=== PATIENT | male | born 1975 | race Caucasian/White ===

== ENCOUNTER 2024-09-03 18:37 | Outpatient (CLI) | payer OTHER, SELFPAY | END 2024-09-03 18:38 | disposition home or self-care (01) | LOC: AMB 09-05 15:02 | PROVIDERS: Visit Provider Family Medicine | DX: F10.129 Alcohol abuse with intoxication, unspecified (principal) | CPT/HCPCS: A0425; A0427 ==

== ENCOUNTER 2024-09-03 19:15 | Inpatient (IN) | payer OTHER, SELFPAY ==
[2024-09-03] VITALS (13 sets, daily range): BP systolic 98–118; BP diastolic 57–80; PULSE 92–98; RESP 14–22; TEMP 36.3; O2SAT 89–93; BMI 26.5
--- NOTE | 2024-09-03 19:38 | CRLHL7_ITS ---
For Patients: As a result of the Century Cures Act, medical imaging exams and procedure reports are released immediately into your electronic medical record. You may view this report before your referring provider. If you have questions, please contact your health care provider. TECHNIQUE: Multiplanar CT examination of the head was performed without the use of intravenous contrast. INDICATION: Trauma. COMPARISON: None. FINDINGS: No loss of bangura-white differentiation to suggest recent territorial infarct. No intracranial hemorrhage, abnormal extra-axial fluid collection, hydrocephalus or midline shift. The ventricles and cerebral sulci are prominent caliber common compatible with mild generalized parenchymal volume loss. There is ill-defined hypoattenuation of the supratentorial white matter diffusely, nonspecific but consistent with chronic microvascular ischemic changes. The basal cisterns are patent. The paranasal sinuses and mastoid air cells remain clear. The orbits and calvarium are unremarkable. The cerebellar tonsils are normal position. IMPRESSION: No acute intracranial findings. Please note that all CT scans at this facility use dose modulation, iterative reconstruction, and/or weight-based dosing when appropriate to reduce radiation dose to as low as reasonably achievable. Dictated by Rodrigo Shannon MD @ 09/03/2024 8:23:41 PM (Electronically Signed)
--- NOTE | 2024-09-03 19:38 | CRLHL7_ITS ---
For Patients: As a result of the Century Cures Act, medical imaging exams and procedure reports are released immediately into your electronic medical record. You may view this report before your referring provider. If you have questions, please contact your health care provider. INDICATION: Alcohol abuse, jaundice, new abdominal distension. TECHNIQUE: CT abdomen and pelvis acquired with 100 cc Omnipaque 350 IV contrast. COMPARISON: None. FINDINGS: Lower chest: Bibasilar atelectasis. Liver: Hepatomegaly with underlying steatosis.. No suspicious masses. Gallbladder and bile ducts: Unremarkable. No stones or inflammation. No biliary dilatation. Pancreas: Unremarkable. No mass or inflammation. Spleen: Unremarkable. Normal in size. No masses. Adrenal glands: Unremarkable. No nodules. Kidneys: Unremarkable. No suspicious masses, stones, or hydronephrosis. GI tract: Tiny hiatal hernia. Mild gastric/duodenal and proximal colonic wall thickening, likely portal gastropathy/colopathy.. Normal in caliber. No sign of mass or inflammation. Normal appendix. Vasculature: Abdominal aorta is normal in caliber. Mesenteric arteries are patent. Lymph nodes: No lymphadenopathy. Peritoneum/Abdominal Wall: Moderate volume ascites. No free air. Pelvis: Unremarkable. Bones: Unremarkable for age. IMPRESSION: Hepatomegaly with underlying steatosis. Sequela of portal venous hypertension, including moderate volume ascites. Mild gastric/duodenal and proximal colonic wall thickening, likely portal gastropathy/colopathy. Otherwise, no acute intra-abdominal/pelvic abnormality. Please note that all CT scans at this facility use dose modulation, iterative reconstruction, and/or weight-based dosing when appropriate to reduce radiation dose to as low as reasonably achievable. Dictated by Km David MD @ 09/03/2024 8:25:38 PM (Electronically Signed)
[2024-09-03] MEDS: 0.9 % SODIUM CHLORIDE 1000 ml 1,000 ML IV (19:50)
[2024-09-03 19:53] LABS: PCO2 VBG 29 mmHG (40-50); pH VBG 7.438 (7.32-7.43)
[2024-09-03 19:54] LABS: Basophils Percent Auto 0.1 % (0.0-3.0); Eosinophils Percent Auto 0.2 % (0.0-7.0); HCO3 VBG 19 mmol/L (21-28); Hematocrit 36.8 % (37.0-53.0); Hemoglobin* 13.5 gm/dL (13.5-17.5); Lymphocytes Percent Auto 7.2 % (20-44); Mean Corpuscular HGB Conc 37 gm/dL (32-36); Mean Corpuscular Hemoglobin 37 pg (26-34); Mean Corpuscular Volume 102 fL (80-100); Monocytes Percent Auto 11.1 % (0.0-11.0); Neutrophils Percent Auto 80.4 % (42.0-72.0); PO2 VBG 56.4 mmHG (25-47); Platelet Count* 249 K/uL (140-440); RDW Coefficient of Variation % 15.8 % (11.5-15.5); Red Blood Count 3.62 m/uL (4.30-5.90); White Blood Count* 15.19 K/uL (4.50-11.00)
[2024-09-03 19:55] LABS: Lactate* 8.4 mmol/L (0.5-1.9); Slide Review Reflex No
[2024-09-03 20:12] LABS: Albumin* 3.5 g/dL (3.3-5.0); Chloride* 82 mmol/L (96-114)
[2024-09-03 20:13] LABS: Potassium* 3.8 mmol/L (3.6-5.1)
[2024-09-03 20:15] LABS: Alanine Aminotransferase* 71 U/L (4-50); Alkaline Phosphatase* 496 U/L (40-150); Anion Gap 22 mEq/L (7-15); Aspartate Amino Transferase* 285 U/L (12-35); Bilirubin Total* 12.4 mg/dL (0.1-1.5); Blood Urea Nitrogen* 14 mg/dL (5-24); Carbon Dioxide* 15 mmol/L (20-32); Creatinine* 1.1 mg/dL (0.5-1.5); Est. Creatinine Clearance* 85.72; Estimated Glomerular Filt Rate 83 ml/min; Glucose* 137 mg/dL (60-115)
[2024-09-03 20:16] LABS: Calcium* 7.8 mg/dL (8.4-10.6)
[2024-09-03 20:21] LABS: Sodium* 119 mmol/L (135-149)
[2024-09-03 20:22] LABS: INR 1.45 (0.91-1.10); Lipase* 2201 U/L (23-300); Prothrombin Time 18.6 Seconds
[2024-09-03 20:28] LABS: Troponin I* < 0.01 ng/mL (0.01-0.04)
--- NOTE | 2024-09-03 20:42 | ED_ITS ---
HPI - General Adult General Date Seen: 09/03/24 Chief complaint: Alcohol/Intoxication Stated complaint: ETOH Time Seen by Provider: 09/03/24 19:37 History of Present Illness HPI narrative: [age] year male brought to the ER today by EMS. History from EMS is that his called 911 today. She found him on the floor and he had been drinking. He was too unsteady to get up so she called EMS. Per EMS they were at a health able to help him stand up but he was unsteady. They report he had been drinking wine today they brought him in. He had no complaints. He had stable vital signs. History from the patient is that he does drink alcohol. He says he prefers to drink vodka. He is little bit vague about how much she drinks but he says between he and his they sometimes will go through a bottle of vodka up her week. Today he was drinking wine, he says. He does not really say how many glasses of wine he had. He has never been through alcohol treatment. He apparently stopped drinking once about a year ago and does recall having some hallucinations when he was going through withdrawal but he does not recall any seizures or other serious problems. It sounds like he was not hospitalized. He has been drinking fairly heavily for the past year or 2. He does not have a job or work outside the home. He does have some depression. He takes a medicine that ?starts with an S? that was prescribed by an online doctor for depression. He is not sure what it was or if he has been taking it lately. He notes that he started developing yellowness of his skin last week or maybe 2 weeks ago and also he has been having increasing discs tension of his abdomen for the past week or so. He says his abdomen feels really tight and it makes it hard to take a deep breath. His abdomen is not really hurting. He has not had a fever. He he says he did not fall today, just that he laid down on the floor. Sometimes his back it is sore because his belly is so big. He denies any recent suicide attempt. He never takes Tylenol. History from his is that he does have a history of alcoholism and has been drinking heavily for the past 2 years when he has been unemployed. Has very secretive about his drinking and is often to see people in lies. She thinks he drinks fireball whiskey more that he drinks vodka. She does not know how much he drinks because he is very secretive about it. He often will sneak out to the garage and she thinks he is probably drinking from a stash of alcohol there. She does agree that he has had new jaundice for the past week or 2 and new abdominal distention for the past week or so. It sounds like their relationship may be under some strain. He is spending most of the time the basement and she lives upstairs. She left to go have lunch with her girlfriends today. He was drinking some box wine at around noon. When she came home at about 5 shear heard a thump in the basement and found him on his hands and knees. She called 911. She does not know if he fell or not. Related Data Allergies Allergy/AdvReac Type Severity Reaction Status Date / Time No Known Drug Allergies Allergy Verified 09/03/24 22:53 [facility] Social History Smoking Status: Never smoker Do you use any of these nicotine containing products: None Second hand tobacco smoke exposure: No How often do you have a drink containing alcohol: 4 or more times a week How many standard drinks containing alcohol do you have on a typical day: 5 or 6 How often do you have six or more drinks on one occasion: Daily or almost daily AUDIT-C Alcohol total score: 10 Non-prescribed substance use: denies use Exam Narrative: Exam Narrative: Primary Survey: A- patent. Speaking relatively clearly. Speech is perhaps slightly slurred but generally clear. He is calm and cooperative.. Phonation normal. No stridor B- breathing easily. Lung sounds clear and equal. Oxygen saturation normal on room air C- no active bleeding. Blood pressure stable. Symmetric pulses and cap refill in 4 extremities. D- alert and oriented to person and place but not date. GCS 15. No focal deficits. Constitutional: Appears well-developed and well-nourished. Awake but seems a little bit drowsy. Paramedics reported that he was apprehensive initially not wanting to come in but he has been cooperative since arrival here. HENT: Head: Atraumatic. Nose: Nose normal. Mouth/Throat: Oral mucosa is clear but mucous membranes are dry. no trismus. Pharynx normal. Tonsils symmetric. No tonsillar enlargement, erythema, or exudate. Eyes: Conjunctivae normal. EOM normal. Pupils equal, round, and reactive to light. Bilateral scleral icterus. Neck: Normal range of motion. Neck supple. No tracheal deviation present. No JVD Cardiovascular: Normal rate, regular rhythm. No gallop. No friction rub. No murmur heard. Symmetric radial artery pulses Pulmonary/Chest: Effort normal. No stridor. No respiratory distress. No wheezes. No rales. No rhonchi . No tenderness. Abdominal: Soft. Bowel sounds are diminished. Protuberant with distended umbilicus. Dull to percussion. Suspicious for ascites in his abdomen. No abdominal tenderness. No CVA tenderness Musculoskeletal: RUE: Normal range of motion. No tenderness. No deformity LUE: Normal range of motion. No tenderness. No deformity RLE: Normal range of motion. No edema. No tenderness. No deformity LLE: Normal range of motion. No edema. No tenderness. No deformity Neurological: Alert and oriented to person, place, but not date. Normal strengt h. CN II-VII intact. No sensory deficit. GCS eye subscore is 4. GCS verbal subscore is 5. GCS motor subscore is 6. Normal coordination Skin: Skin is jaundiced. Skin is warm and dry. Other than jaundice, no rash noted. No pallor. Normal capillary refill. Psychiatric: Flat affect. Generally cooperative. He is a little bit karena a Sieve when discussing his alcohol use. He does say that he and his will go through a bottle of vodka every week or so. He does say he was drinking some wine earlier today. Const: Vital Signs, click to edit/add: Vital Signs - 24 hr 09/03/24 19:22 09/03/24 19:41 09/03/24 19:45 Temperature 97.4 F L Pulse Rate 93 Pulse Rate [Right Radial] 96 Respiratory Rate 22 Blood Pressure Blood Pressure [Ri ght Upper Arm] 118/80 Pulse Oximetry 92 93 90 Oxygen Delivery Me thod Room Air Oxygen Flow Rate 09/03/24 20:24 09/03/24 20:30 09/03/24 21:00 Temperature Pulse Rate 97 92 93 Pulse Rate [Right Radial] Respiratory Rate 20 22 Blood Pressure 118/60 105/66 Blood Pressure [Ri ght Upper Arm] Pulse Oximetry 92 92 91 Oxygen Delivery Me thod Room Air Room Air Oxygen Flow Rate 09/03/24 21:01 09/03/24 21:03 09/03/24 23:25 Temperature Pulse Rate 98 93 Pulse Rate [Right Radial] Respiratory Rate Blood Pressure 117/79 Blood Pressure [Ri ght Upper Arm] Pulse Oximetry 93 92 89 Oxygen Delivery Me thod Room Air Oxygen Flow Rate 09/03/24 23:29 09/03/24 23:35 09/03/24 23:36 Temperature Pulse Rate 92 93 Pulse Rate [Right Radial] Respiratory Rate 21 14 Blood Pressure 98/57 L Blood Pressure [Ri ght Upper Arm] Pulse Oximetry 92 92 92 Oxygen Delivery Me thod Nasal Cannula Room Air Oxygen Flow Rate 1 Course Vital Signs Vital signs: Initial Vital Signs Temperature 97.4 F L 09/03/24 19:22 Temperature Source Temporal Artery Scan 09/03/24 19:22 Pulse Rate 96 09/03/24 19:22 Pulse Rhythm Regular 09/03/24 19:22 Respiratory Rate 22 09/03/24 19:22 Blood Pressure 118/80 09/03/24 19:22 Blood Pressure Mean 92 09/03/24 19:22 Pulse Oximetry 92 09/03/24 19:22 Oxygen Delivery Method Room Air 09/03/24 19:22 Vital Signs Temperature 97.4 F L 09/03/24 19:22 Pulse Rate 96 09/03/24 19:22 Respiratory Rate 22 09/03/24 19:22 Blood Pressure 118/80 09/03/24 19:22 Pulse Oximetry 92 09/03/24 19:22 Oxygen Delivery Method Room Air 09/03/24 19:22 Temperature 97.4 F L 09/03/24 19:22 Pulse Rate 93 09/03/24 23:36 Respiratory Rate 14 09/03/24 23:36 Blood Pressure 98/57 L 09/03/24 23:35 Pulse Oximetry 92 09/03/24 23:36 Oxygen Delivery Method Room Air 09/03/24 23:35 Oxygen Flow Rate 1 09/03/24 23:29 Medications Administered Medications: Discontinued Medications Generic Name Dose Route Start Last Admin Trade Name Freq PRN Reason Stop Dose Admin Sodium Chloride 1,000 mls @ 1,000 mls/hr 09/03/24 19:45 09/03/24 22:40 0.9 % Sodium Chloride 1000 Ml IV 09/03/24 20:44 Infused .Q1H ROCHELLE Infusion Thiamine HCl 250 mg/ Sodium 102.5 mls @ 102.5 mls/hr 09/03/24 21:13 09/03/24 22:51 Chloride IVPB 09/03/24 21:14 102.5 mls/hr ONCE ONE Administration Folic Acid 1 mg/ Sodium 50.2 mls @ 100.4 mls/hr 09/03/24 21:12 09/03/24 22:10 Chloride IVPB 09/03/24 21:13 100.4 mls/hr ONCE ONE Administration Ceftriaxone Sodium 1 gm/ 100 mls @ 200 mls/hr 09/03/24 22:15 09/03/24 22:33 Sodium Chloride IVPB 09/03/24 22:16 200 mls/hr ONCE ONE Administration Medical Decision Making MDM Narrative Medical decision making narrative: 49-year-old male brought to the ER today with report of alcohol intoxication, unsteadiness with possible fall. In terms of his presentation he did present with some drowsiness and definite unsteadiness per EMS which would have been suggestive for alcohol intoxication. However, broader differential for altered mental status was undertaken including electrolyte disturbance, hepatic encephalopathy, intracranial injury, among others. Head CT is obtained and is normal. Blood sugars normal at 137. Sodium is somewhat low at 119, but not low enough to require administration of hypertonic saline. IV saline administered for apparent clinical dehydration with markedly dry mucous membranes. Also IV thiamine and folate. After 1 L of IV fluid, since blood pressure and pulse are otherwise stable, will hold off on additional IV. Will pursue fluid restriction to help correct his hyponatremia. initial alcohol serum level is 0.00. Here in the ER the patient actually became more alert. He was conversant, not slurring his speech. He was not displaying signs of tremor, tachycardia, shakiness, vomiting, or other signs of alcohol withdrawal. However will need careful monitoring since his last drink was sometime this afternoon. Consider possible alcohol withdrawal seizure leading to his presentation, however he is not having tremulousness, tachycardia, nausea vomiting, diarrhea, abdominal pain, or other clear manifestations of alcohol withdrawal at this time LFTs are markedly abnormal with a total bilirubin of 12.4. AST 285, ALT 71, alk-phos 496. Ammonia 70.9. INR is 1.45. Lipase is also elevated 2210. Likely indicative alcoholic pancreatitis. In no definite pancreatic abnormality on CT scan. VBG shows a respiratory alkalosis with a pH is 7.43, pCO2 of 29. Lactic acid elevated, suspect related to liver failure. Improved from 8.3 down to 4.9 after saline. Pulse and blood pressure are stable. No evidence for septic shock at this point. Hemoglobin is normal. Denies any recent black or bloody stools. No evidence for active GI bleed or hemorrhage. Although he does have fluid in his abdomen, it sounds like it has been slowly accumulating for couple of weeks, strongly supportive ascites , as opposed to free intraperitoneal blood CT scan shows hepatomegaly with steatosis, moderate volume ascites. It also shows gastric/duodenal and proximal colonic wall thickening, likely portal gastropathy/colopathy. White blood cell count elevated 15. Hemoglobin 13.5. Platelet count 249. He does have a leukocytosis. He denies any abdominal pain and has no tenderness on serial exams. However with ascites and leukocytosis, consider SBP. I did do a bedside ultrasound to look for a deep wide fluid pocket that would safely accommodate a paracentesis for diagnosis (also would be therapeutic for the patient is if we get take off some fluid). He does have ascites and some pockets measuring up to 44.5 cm but these pockets are very narrow, only a cm or 2 wide on the abdominal wall. At this point I feel that there is risk for creating bowel perforation. Will hold off on paracentesis. Will start the patient on empiric Rocephin for possible SBP. Disposition: Patient would prefer to stay here in [facility]. He has a little bit minimizing his degree of alcohol use and also is not fully accepting of his degree of liver failure. Discussed with our hospitalist, Dr. Michel. He advised is transfer to a facility with GI capabilities. Patient verbalized his understanding. Subsequently his father arrived and supports transfer to get him whenever care he needs. Over the phone, his Larisa also confirms her support of transfer. Discussed with the [facility] system. They are currently full but will put the patient on a wait list for 1 of their facilities in the [facility] that has GI capability. He there are currently no open beds in the [facility] system, [facility], or [place] [facility]. Ultimately, he is on the wait list for the [facility] system but there is no other accepting facilities. Dr. Mcgee will accept him to the hospitalist service for now since he is doing well and is not displaying signs of alcohol withdrawal yet. He is going to get better medical care on the hospital floor here rather than boarding in the ER overnight. He will remain on the [facility] wait list Discussed with my partner, Dr. Dillard. Who can observe him here in the ER until he goes to the medical floor Lab Data Labs: Lab Results 09/03/24 09/03/24 Range/Units 19:50 22:32 WBC 15.19 H (4.50-11.00) K/uL RBC 3.62 L (4.30-5.90) m/uL Hgb 13.5 (13.5-17.5) gm/dL Hct 36.8 L (37.0-53.0) % MCV 102 H (80-100) fL MCH 37 H (26-34) pg MCHC 37 H (32-36) gm/dL RDW Coeff of Jean 15.8 H (11.5-15.5) % Plt Count 249 (140-440) K/uL Neut % (Auto) 80.4 H (42.0-72.0) % Lymph % (Auto) 7.2 L (20-44) % [place] % (Auto) 11.1 H (0.0-11.0) % Eos % (Auto) 0.2 (0.0-7.0) % Baso % (Auto) 0.1 (0.0-3.0) % Neut # (Auto) 12.20 H (1.7-7.0) K/uL Lymph # (Auto) 1.10 (0.90-2.90) K/uL [place] # (Auto) 1.70 H (0.00-0.90) K/UL Eos # (Auto) 0.00 (0.00-0.50) K/uL Baso # (Auto) 0.00 (0.00-0.30) K/uL Abs Immat Gran (auto) 0.20 (0.00-0.30) K/uL Imm/Tot Granulo (auto) 1.0 % INR 1.45 H (0.91-1.10) VBG pH 7.438 H (7.32-7.43) VBG pCO2 29 L (40-50) mmHG VBG pO2 56.4 H (25-47) mmHG VBG HCO3 19 L (21-28) mmol/L Sodium 119 L* (135-149) mmol/L Potassium 3.8 (3.6-5.1) mmol/L Chloride 82 L (96-114) mmol/L Carbon Dioxide 15 L (20-32) mmol/L Anion Gap 22 H (7-15) mEq/L BUN 14 (5-24) mg/dL Creatinine 1.1 (0.5-1.5) mg/dL Estimated Creat Clear 85.72 Estimated GFR 83 ml/min Glucose 137 H (60-115) mg/dL Lactate 8.4 H* 4.9 H* (0.5-1.9) mmol/L Calcium 7.8 L (8.4-10.6) mg/dL Total Bilirubin 12.4 H (0.1-1.5) mg/dL AST 285 H (12-35) U/L ALT 71 H (4-50) U/L Alkaline Phosphatase 496 H (40-150) U/L Ammonia 70.9 H (13.1-30.0) umol/L Troponin I < 0.01 L (0.01-0.04) ng/mL Total Protein 7.0 (6.0-8.3) g/dL Albumin 3.5 (3.3-5.0) g/dL Lipase 2201 H (23-300) U/L Acetaminophen < 10.0 L (10.0-30.0) ug/mL Ethyl Alcohol 0.00 L (0.01-0.03) % Imaging Data CT scan - head: Attestation: I have reviewed the pertinent imaging results. Radiologist's impression: IMPRESSION: No acute intracranial findings. CT scan - abdomen: Attestation: I have reviewed the pertinent imaging results. Radiologist's impression: IMPRESSION: Hepatomegaly with underlying steatosis. Sequela of portal venous hypertension, including moderate volume ascites. Mild gastric/duodenal and proximal colonic wall thickening, likely portal gastropathy/colopathy. Otherwise, no acute intra-abdominal/pelvic abnormality. ECG Data Attestation: I personally reviewed and interpreted this ECG as follows: Interpretation: Normal sinus rhythm Rate: 93 RI: 176 QRS axis: Right axis deviation. Incomplete right bundle-branch block ST segment/T wave: No ST segment elevation or depression. Artifact in leads V1 and V2 QTc: 497 Discharge Plan Discharge Clinical Impression: Acute liver failure, Pancreatitis, Abdominal ascites, Acute hepatic encephalopathy Patient Disposition: Xfer Other Stand Alone Forms: [facility] Info Instructions Procedures Ultrasound Other exam #1: Anatomical areas examined: In abdominal ultrasound, right lower quadrant, left lower quadrant Indications: Ascites, FL for adequate fluid pocket for paracentesis Exam type: focused emergency ultrasound Description/findings: There is ascites in the abdominal cavity. The depth of the fluid pocket varies from 1-2 cm up to about 4 cm. Many the pockets are very narrow, only about 1 or 2 cm wide between loops of bowel. Impression: For ascites, but not a deep, wide pocket to allow for safe paracentesis here in the ER.
[2024-09-03 20:44] LABS: Ammonia* 70.9 umol/L (13.1-30.0)
[2024-09-03] MEDS: FOLIC ACID 1 MG in 0.9 % SODIUM CHLORIDE 50 ml 50 ML 100.4 MG IVPB (22:10)
[2024-09-03 22:33] LABS: Acetaminophen* < 10.0 ug/mL (10.0-30.0)
[2024-09-03] MEDS: cefTRIAXone 1 GM in 0.9 % SODIUM CHLORIDE Mini-bag 100 ML IVPB (22:33)
[2024-09-03 22:38] LABS: Lactate* 4.9 mmol/L (0.5-1.9)
[2024-09-03] MEDS: THIAMINE 250 MG in 0.9 % SODIUM CHLORIDE 100 ml 100 ML 102.5 MG IVPB (22:51)
[2024-09-04] VITALS (22 sets, daily range): BP systolic 113–144; BP diastolic 75–106; PULSE 88–124; RESP 20–24; TEMP 36.4–37.7; O2SAT 87–92; BMI 28.7
--- NOTE | 2024-09-04 00:10 | ED.NURSE ---
Rn to Rn report given. Pt taken to [facility] via histology technician.
[2024-09-04] MEDS: PHENobarbitaL 260 MG in 0.9 % SODIUM CHLORIDE 100 ml 100 ML 208 MG IVPB ×2 (00:52→14:59)
[2024-09-04] MEDS: 5 % DEXTROSE IN LAC RINGER'S 1,000 ML 125 ML IV ×2 (00:52→08:52)
--- NOTE | 2024-09-04 00:59 | PM.IMHP1 ---
Hospitalist- H&P: YO History of Present Illness Time Seen by Provider: 11:45 Date Seen: 09/03/24 Chief complaint: ETOH Narrative: Hilary Hankins is a 49 year old male brought to the ER today by EMS. History from EMS is that his called 911 today. She found him on the floor and he had been drinking. He was too unsteady to get up so she called EMS. Per EMS they were at a health able to help him stand up but he was unsteady. They report he had been drinking wine today they brought him in. He had no complaints. He had stable vital signs. History from the patient is that he does drink alcohol. He says he prefers to drink vodka. He is little bit vague about how much she drinks but he says between he and his they sometimes will go through a bottle of vodka up her week. Today he was drinking wine, he says. He does not really say how many glasses of wine he had. He has never been through alcohol treatment. He apparently stopped drinking once about a year ago and does recall having some hallucinations when he was going through withdrawal but he does not recall any seizures or other serious problems. It sounds like he was not hospitalized. He has been drinking fairly heavily for the past year or 2. He does not have a job or work outside the home. He does have some depression. He takes a medicine that ?starts with an S? that was prescribed by an online doctor for depression. He is not sure what it was or if he has been taking it lately. He notes that he started developing yellowness of his skin last week or maybe 2 weeks ago and also he has been having increasing discs tension of his abdomen for the past week or so. He says his abdomen feels really tight and it makes it hard to take a deep breath. His abdomen is not really hurting. He has not had a fever. He he says he did not fall today, just that he laid down on the floor. Sometimes his back it is sore because his belly is so big. He denies any recent suicide attempt. He never takes Tylenol. History from his is that he does have a history of alcoholism and has been drinking heavily for the past 2 years when he has been unemployed. Has very secretive about his drinking and is often to see people in lies. She thinks he drinks fireball whiskey more that he drinks vodka. She does not know how much he drinks because he is very secretive about it. He often will sneak out to the garage and she thinks he is probably drinking from a stash of alcohol there. She does agree that he has had new jaundice for the past week or 2 and new abdominal distention for the past week or so. It sounds like their relationship may be under some strain. He is spending most of the time the basement and she lives upstairs. She left to go have lunch with her girlfriends today. He was drinking some box wine at around noon. When she came home at about 5 shear heard a thump in the basement and found him on his hands and knees. She called 911. She does not know if he fell or not. He reports that he has been prominently fatigued and had a very poor appetite for about a year. Occasionally has vomiting. He is not aware of fever. Reports his bowels have been normal. He has not had abdominal pain. Abdominal distension as noted above has been present for 1-2 weeks. Review of Systems Narrative: Denies any problems except as noted above. [facility] Medical History (Updated 09/04/24 @ 01:17 by Reese Michel MD) Portal hypertensive gastropathy ?K76.6 - Portal hypertension (ICD-10) ?K31.89 - Other diseases of stomach and duodenum (ICD-10) Cirrhosis, alcoholic ?K70.30 - Alcoholic cirrhosis of liver without ascites (ICD-10) Alcohol use disorder ?F10.90 - Alcohol use, unspecified, uncomplicated (ICD-10) Social History (Updated 09/04/24 @ 01:07 by Reese Michel MD) Narrative: He lives in [place] with his . 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 Code status is full. 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 He drinks alcohol daily but is quite vague about how much. He says if he does not drink he does get quite shaky. He does not smoke. Occasional cannabis use. He does not have a local physician. He gets an antidepressant prescribed by an online physician. Smoking Status: Never smoker Do you use any of these nicotine containing products: None Second hand tobacco smoke exposure: No How often do you have a drink containing alcohol: 4 or more times a week How many standard drinks containing alcohol do you have on a typical day: 5 or 6 How often do you have six or more drinks on one occasion: Daily or almost daily AUDIT-C Alcohol total score: 10 Non-prescribed substance use: denies use Meds Home Medications and Allergies Home Medication Comments: Unknown Antidepressant prescribed by online physician. Possibly starts with S Allergies Allergy/AdvReac Type Severity Reaction Status Date / Time No Known Drug Allergies Allergy Verified 09/03/24 22:53 Exam Narrative: Exam Narrative: He is awake. He has slow mentation. He is able to answer most questions. No evidence of hallucinations. Head is without trauma. Eyes with moderately severe scleral icterus. Oropharynx with dry mucous membranes. Jaundice is present. Neck is supple without mass or adenopathy. Respirations are clear to auscultation. Cardiovascular: S1, S2, regular rate and rhythm. Abdomen with active bowel sounds. Abdomen is massively distended with ascites. He has a umbilical hernia which is without incarcerated tissue. No abdominal tenderness. I do not palpate a mass. Unable to percuss liver edge. Minimal tremor in both hands without asterixis. No significant lower extremity edema. Intact pedal pulses. Const: Vital Signs, click to edit/add: Vital Signs - 24 hr 09/03/24 19:22 09/03/24 19:41 09/03/24 19:45 Temperature 97.4 F L Pulse Rate 93 Pulse Rate [Right Radial] 96 Respiratory Rate 22 Blood Pressure Blood Pressure [Ri ght Upper Arm] 118/80 Pulse Oximetry 92 93 90 Oxygen Delivery Me thod Room Air Oxygen Flow Rate 09/03/24 20:24 09/03/24 20:30 09/03/24 21:00 Temperature Pulse Rate 97 92 93 Pulse Rate [Right Radial] Respiratory Rate 20 22 Blood Pressure 118/60 105/66 Blood Pressure [Ri ght Upper Arm] Pulse Oximetry 92 92 91 Oxygen Delivery Me thod Room Air Room Air Oxygen Flow Rate 09/03/24 21:01 09/03/24 21:03 09/03/24 23:25 Temperature Pulse Rate 98 93 Pulse Rate [Right Radial] Respiratory Rate Blood Pressure 117/79 Blood Pressure [Ri ght Upper Arm] Pulse Oximetry 93 92 89 Oxygen Delivery Tx thod Room Air Oxygen Flow Rate 09/03/24 23:29 09/03/24 23:35 09/03/24 23:36 Temperature Pulse Rate 92 93 Pulse Rate [Right Radial] Respiratory Rate 21 14 Blood Pressure 98/57 L Blood Pressure [Ri ght Upper Arm] Pulse Oximetry 92 92 92 Oxygen Delivery Me thod Nasal Cannula Room Air Oxygen Flow Rate 1 09/03/24 23:45 Temperature Pulse Rate 93 Pulse Rate [Right Radial] Respiratory Rate Blood Pressure Blood Pressure [Ri ght Upper Arm] Pulse Oximetry 90 Oxygen Delivery Me thod Oxygen Flow Rate Documenting provider has reviewed patient's vital signs: yes Hospitalist - H&P: Result Labs Labs: Short CBC 09/03/24 Range/Units 19:50 WBC 15.19 H (4.50-11.00) K/uL Hgb 13.5 (13.5-17.5) gm/dL Hct 36.8 L (37.0-53.0) % Plt Count 249 (140-440) K/uL BMP 09/03/24 19:50 Sodium 119 L* Potassium 3.8 Chloride 82 L Carbon Dioxide 15 L BUN 14 Creatinine 1.1 Glucose 137 H Calcium 7.8 L Cardiac Enzymes 09/03/24 Range/Units 19:50 Troponin I < 0.01 L (0.01-0.04) ng/mL Liver Function 09/03/24 Range/Units 19:50 Total Bilirubin 12.4 H (0.1-1.5) mg/dL AST 285 H (12-35) U/L ALT 71 H (4-50) U/L Alkaline Phosphatase 496 H (40-150) U/L Albumin 3.5 (3.3-5.0) g/dL ECG Attestation: I personally reviewed and interpreted this ECG as follows: (Normal sinus rhythm, incomplete right bundle branch block, prolonged QT) ECG interpretation date: 09/03/[address] scan - abdomen: Radiologist's impression: INDICATION: Alcohol abuse, jaundice, new abdominal distension. TECHNIQUE: CT abdomen and pelvis acquired with 100 cc Omnipaque 350 IV contrast. COMPARISON: None. FINDINGS: Lower chest: Bibasilar atelectasis. Liver: Hepatomegaly with underlying steatosis.. No suspicious masses. Gallbladder and bile ducts: Unremarkable. No stones or inflammation. No biliary dilatation. Pancreas: Unremarkable. No mass or inflammation. Spleen: Unremarkable. Normal in size. No masses. Adrenal glands: Unremarkable. No nodules. Kidneys: Unremarkable. No suspicious masses, stones, or hydronephrosis. GI tract: Tiny hiatal hernia. Mild gastric/duodenal and proximal colonic wall thickening, likely portal gastropathy/colopathy.. Normal in caliber. No sign of mass or inflammation. Normal appendix. Vasculature: Abdominal aorta is normal in caliber. Mesenteric arteries are patent. Lymph nodes: No lymphadenopathy. Peritoneum/Abdominal Wall: Moderate volume ascites. No free air. Pelvis: Unremarkable. Bones: Unremarkable for age. IMPRESSION: Hepatomegaly with underlying steatosis. Sequela of portal venous hypertension, including moderate volume ascites. Mild gastric/duodenal and proximal colonic wall thickening, likely portal gastropathy/colopathy. Otherwise, no acute intra-abdominal/pelvic abnormality. CT scan - head: Radiologist's impression: INDICATION: Trauma. COMPARISON: None. FINDINGS: No loss of bangura-white differentiation to suggest recent territorial infarct. No intracranial hemorrhage, abnormal extra-axial fluid collection, hydrocephalus or midline shift. The ventricles and cerebral sulci are prominent caliber common compatible with mild generalized parenchymal volume loss. There is ill-defined hypoattenuation of the supratentorial white matter diffusely, nonspecific but consistent with chronic microvascular ischemic changes. The basal cisterns are patent. The paranasal sinuses and mastoid air cells remain clear. The orbits and calvarium are unremarkable. The cerebellar tonsils are normal position. IMPRESSION: No acute intracranial findings. Assessment and Plan Assessment and plan (1) Alcohol use disorder: Problem comment: Anticipate multiple medical complications from advanced liver disease, encephalopathy, alcohol withdrawal Status: Acute (2) Cirrhosis, alcoholic: Problem comment: Likely chronic with acute exacerbation due to acute hepatitis. Meld sodium score of 28 giving a 90 day mortality of 27-32% Status: Acute (3) Portal hypertensive gastropathy: Problem comment: Noted on CT scan. At risk for bleeding Status: Acute (4) Acute hepatic encephalopathy: Problem comment: Start lactulose. Status: Acute (5) Abdominal ascites: Problem comment: Paracentesis for diagnosis and treatment. Evaluate for peritonitis. Status: Acute (6) Pancreatitis: Problem comment: Pedis tolerated. Follow Status: Acute (7) Acute liver failure: Problem comment: By history he has had acute on chronic liver failure and failure to thrive presumably related to liver disease. Status: Acute Plan Patient is admitted the hospital for management of liver failure, alcohol withdrawal, ascites, hepatic encephalopathy. Due to the seriousness of his illness is it was hoped he could be transferred to a higher level of care but this was not possible due to no beds available. He is on a waiting list at [place]. In the meantime he will be managed here in our CCU. Total Time Spent Total Time Spent: Critical care time of 105 minutes
[2024-09-04] MEDS: FUROSEMIDE 10 MG/ML inj IVP (01:02)
[2024-09-04] MEDS: MIDODRINE HCL 5 MG TABLET PO ×2 (01:07→09:30)
[2024-09-04 01:43] LABS: Chloride* 85 mmol/L (96-114)
[2024-09-04 01:44] LABS: Potassium* 3.6 mmol/L (3.6-5.1)
[2024-09-04 01:46] LABS: Anion Gap 17 mEq/L (7-15); Blood Urea Nitrogen* 15 mg/dL (5-24); Carbon Dioxide* 18 mmol/L (20-32); Est. Creatinine Clearance* 94.29; Estimated Glomerular Filt Rate 93 ml/min
[2024-09-04 01:47] LABS: Calcium* 7.4 mg/dL (8.4-10.6); Glucose* 121 mg/dL (60-115); Magnesium* 2.3 mg/dL (1.5-2.6); Phosphorus* 3.7 mg/dL (2.5-4.5)
[2024-09-04 01:52] LABS: Sodium* 120 mmol/L (135-149)
[2024-09-04 05:04] LABS: Appearance Urine Turbid (Clear); Bilirubin Urine 3+ (Negative); Blood Urine Trace-intact (Negative); Color Urine Red (Yellow); Glucose Urine Negative (Negative); Ketones Urine Negative (Negative); Leukocyte Esterase Urine Negative (Negative); Nitrite Urine Negative (Negative); Protein Urine Trace (Negative)
[2024-09-04 05:09] LABS: Bacteria Urine Few; Fine Granular Casts Urine Few; RBC Urine 0-2 (0-2); Squamous Epithelial Cell Urine Few (None-Few)
[2024-09-04 05:12] LABS: Amphetamine Screen Urine Negative (Negative); Barbiturate Screen Urine Negative (Negative); Benzodiazepines Screen Urine Negative (Negative); Cannabinoid Screen Urine POSITIVE (Negative); Cocaine Screen Urine Negative (Negative); Methadone Screen Urine Negative (Negative); Methamphetamines Screen Urine Negative (Negative); Opiate Screen Urine Negative (Negative); Oxycodone Screen Urine Negative (Negative); Phencyclidine Screen Urine Negative (Negative); Tricyclic Antidepressant Urine Negative (Negative)
[2024-09-04] MEDS: LORazepam 2 MG/ML inj IVP ×3 (05:46→16:27)
[2024-09-04 06:39] LABS: Lactate* 3.4 mmol/L (0.5-1.9)
[2024-09-04 06:46] LABS: Basophils Percent Auto 0.1 % (0.0-3.0); Eosinophils Percent Auto 0.2 % (0.0-7.0); Hematocrit 32.8 % (37.0-53.0); Hemoglobin* 11.9 gm/dL (13.5-17.5); Immature Granulocytes Pct Auto 0.7 %; Lymphocytes Percent Auto 6.1 % (20-44); Mean Corpuscular HGB Conc 36 gm/dL (32-36); Mean Corpuscular Hemoglobin 37 pg (26-34); Mean Corpuscular Volume 102 fL (80-100); Monocytes Percent Auto 10.9 % (0.0-11.0); Platelet Count* 236 K/uL (140-440); RDW Coefficient of Variation % 16.1 % (11.5-15.5); Red Blood Count 3.21 m/uL (4.30-5.90); White Blood Count* 16.14 K/uL (4.50-11.00)
[2024-09-04 06:52] LABS: Slide Review Reflex No
--- NOTE | 2024-09-04 06:55 | PC.NURSE ---
shift note: pts father, Ghulam at bedside throughout the shift, appears to be supportive to pt, reinforces nursing education. Pts mother is planning on flying to [place] from [place] per Ghulam. Pt reports a past episode of ETOH withdrawals, symptoms included tremors, nausea & hallucinations, sounds like he was with his father during this time. Pt states he has ?a couple? drinks per day (Vodka mixed with water), drinks more on the weekends. Unable to define ?a couple?. Drinking glass maybe 4inches tall ? pt demonstrated glass size with fingers. Pt states there are days ?here and there? where he does not consume alcohol.? O2 sats on RA 87% when resting/sleeping, Placed pt on 1L initially, had to titrate to 1.5L O2 via NC, sats 89-92%. LS clear, bases dim. ABD distended & firm, denies tenderness with palpation, states feeling ?full?, denies pain. Bowels active. Pt passing gas. Hal to consult, possible paracentesis 09/04. Up to use urinal at bedside, bed alarm on d/t pt being unsteady ambulating into , informed pt to call when needing to get up- pt did not call & set off bed alarm. SBA this shift. Urine dark cristiana, urine culture & drug screen pending. Compliant with 1500mL FR. Tele ? NSR, occasionally tachy, HR 110s with activity. ? 2mg Ativan IVP given x 1 per CIWA protocol, pt slightly tremulous & restless, c/o insomnia. Denies nausea, visual & auditory hallucinations.
[2024-09-04 07:11] LABS: Chloride* 87 mmol/L (96-114); Potassium* 3.7 mmol/L (3.6-5.1)
[2024-09-04 07:14] LABS: Carbon Dioxide* 20 mmol/L (20-32); Est. Creatinine Clearance* 94.29; Estimated Glomerular Filt Rate 93 ml/min
[2024-09-04 07:15] LABS: Blood Urea Nitrogen* 15 mg/dL (5-24); Calcium* 7.2 mg/dL (8.4-10.6); Glucose* 133 mg/dL (60-115)
[2024-09-04 07:29] LABS: Anion Gap 13 mEq/L (7-15); Sodium* 120 mmol/L (135-149)
[2024-09-04 08:11] LABS: Bilirubin Direct* 10.2 mg/dL (0.0-0.5)
[2024-09-04 08:12] LABS: Creatine Kinase* 97 U/L (54-186)
[2024-09-04 08:13] LABS: Alkaline Phosphatase* 414 U/L (40-150); Aspartate Amino Transferase* 252 U/L (12-35); Bilirubin Direct* 9.2 mg/dL (0.0-0.5); Total Protein* 6.3 g/dL (6.0-8.3)
[2024-09-04 08:14] LABS: Alanine Aminotransferase* 70 U/L (4-50); Creatine Kinase* 128 U/L (54-186)
[2024-09-04 08:15] LABS: C Reactive Protein* 4.2 mg/dL (0.5-1.0)
[2024-09-04 08:16] LABS: C Reactive Protein* 4.1 mg/dL (0.5-1.0)
[2024-09-04 08:26] LABS: Lipase* 2084 U/L (23-300)
[2024-09-04 08:30] LABS: Procalcitonin* 0.78 ng/mL (<0.50)
--- NOTE | 2024-09-04 08:31 | P.IMPN_ITS ---
Progress Note: A&P Assessment and plan (1) Alcohol use disorder: Problem details: Anticipate multiple medical complications from advanced liver disease, encephalopathy, alcohol withdrawal Status: Acute (2) Cirrhosis, alcoholic: Problem details: Likely chronic with acute exacerbation due to acute hepatitis. Meld sodium score of 28 giving a 90 day mortality of 27-32% Status: Acute (3) Portal hypertensive gastropathy: Problem details: Noted on CT scan. At risk for bleeding Status: Acute (4) Acute hepatic encephalopathy: Problem details: Start lactulose. Status: Acute (5) Abdominal ascites: Problem details: Paracentesis for diagnosis and treatment. Evaluate for peritonitis. Status: Acute (6) Pancreatitis: Problem details: Pedis tolerated. Follow Status: Acute (7) Acute liver failure: Problem details: By history he has had acute on chronic liver failure and failure to thrive presumably related to liver disease. Status: Acute (8) Acute alcoholic hepatitis: Status: Acute Subjective Date Seen: 09/04/24 Interval history: Daily Progress Note - Hospital Medicine Day #: 2 CC: Acute alcoholic hepatitis 24 HOUR UPDATE: shift note: pts father, Ghulam at bedside throughout the shift, appears to be supportive to pt, reinforces nursing education. Pts mother is planning on flying to [place] from [place] per Ghulam. Pt reports a past episode of ETOH withdrawals, symptoms included tremors, nausea & hallucinations, sounds like he was with his father during this time. Pt states he has ?a couple? drinks per day (Vodka mixed with water), drinks more on the weekends. Unable to define ?a couple?. Drinking glass maybe 4inches tall ? pt demonstrated glass size with fingers. Pt states there are days ?here and there? where he does not consume alcohol.? O2 sats on RA 87% when resting/sleeping, Placed pt on 1L initially, had to titrate to 1.5L O2 via NC, sats 89-92%. LS clear, bases dim. ABD distended & firm, denies tenderness with palpation, states feeling ?full?, denies pain. Bowels active. Pt passing gas. Hal to consult, possible paracentesis 09/04. Up to use urinal at bedside, bed alarm on d/t pt being unsteady ambulating into , informed pt to call when needing to get up- pt did not call & set off bed alarm. SBA this shift. Urine dark cristiana, urine culture & drug screen pending. Compliant with 1500mL FR. Tele ? NSR, occasionally tachy, HR 110s with activity. ? 2mg Ativan IVP given x 1 per CIWA protocol, pt slightly tremulous & restless, c/o insomnia. Denies nausea, visual & auditory hallucinations. Notable Labs, Micro, Rads, Interventions: Afebrile since arrival, T-max 98.5? F Blood pressure has improved and is stable at 1 this morning. He is tachycardic, he had been in the 90s is trending up to [id number]. Respiratory rate has been fairly steady 22 to 24. Sats were 87-89% with 1-1/2 L. Standing scale weight 91.2 kilos (200.64 lbs) White blood cell count has trended up 15.1-16.14 (absolute neutrophil count 13,000-82% neutrophil) Hemoglobin is down to 11.9 from 13.5 MCV 102 Platelet count 236 INR 1.45 on admission, VBG on admission 7.4, bicarb 19 His sodium is stable at 120 Potassium is normal His bicarb is increased from 15-20 His anion gap is closed His creatinine is 1.0, BUN 15 Glucose 133 Lactate is still elevated but has come down nicely from 8.4-3.4 he is on D5 LR Calcium corrects secondary to his albumin, 8.0 Liver enzymes Bilirubin is 11.0, down from 12.4-direct is 9.2 down from 10.2 AST, ALT, alk-phos are essentially the same CRP is mildly elevated at 4.1 Procalcitonin is mildly elevated at 0.7 Lipase remains elevated at [address] on admission Hepatomegaly with underlying steatosis. Sequela of portal venous hypertension, including moderate volume ascites. Mild gastric/duodenal and proximal colonic wall thickening, likely portal gastropathy/colopathy. Otherwise, no acute intra-abdominal/pelvic abnormality. To blood cultures are negative to date, urine culture pending EKG reviewed from admission Negative Head CT on admission Objective: Vitals: see above Lungs: Clear. Cardiac: S1S2. Disposition/Potential discharge - Today I spent 50minutes seeing the patient, reviewing Expanse and EPIC notes/diagnostics, discussing the care plan with our care time that includes social work, PT/OT, pharmacy, RT, intermediate and documenting my impressions and plan in the medical record. Alcohol [id number] >30 mins. We went over all the stigmata of alcoholism I see in this patient. I discussed the effects of chronic alcohol on the brain, liver, and heart. I recommended complete abstinence from alcohol and instructed on programs available at discharge from acute care. Exam Const: Vital Signs, click to edit/add: Vital Signs - 24 hr 09/03/24 19:22 09/03/24 19:41 09/03/24 19:45 Temperature 97.4 F L Pulse Rate 93 Pulse Rate [Pulse Oximeter] Pulse Rate [Right Radial] 96 Respiratory Rate 22 Blood Pressure Blood Pressure [Ri ght Arm] Blood Pressure [Ri ght Upper Arm] 118/80 Pulse Oximetry 92 93 90 Oxygen Delivery Me thod Room Air Oxygen Flow Rate 09/03/24 20:24 09/03/24 20:30 09/03/24 21:00 Temperature Pulse Rate 97 92 93 Pulse Rate [Pulse Oximeter] Pulse Rate [Right Radial] Respiratory Rate 20 22 Blood Pressure 118/60 105/66 Blood Pressure [Ri ght Arm] Blood Pressure [Ri ght Upper Arm] Pulse Oximetry 92 92 91 Oxygen Delivery Me thod Room Air Room Air Oxygen Flow Rate 09/03/24 21:01 09/03/24 21:03 09/03/24 23:25 Temperature Pulse Rate 98 93 Pulse Rate [Pulse Oximeter] Pulse Rate [Right Radial] Respiratory Rate Blood Pressure 117/79 Blood Pressure [Ri ght Arm] Blood Pressure [Ri ght Upper Arm] Pulse Oximetry 93 92 89 Oxygen Delivery Me thod Room Air Oxygen Flow Rate 09/03/24 23:29 09/03/24 23:35 09/03/24 23:36 Temperature Pulse Rate 92 93 Pulse Rate [Pulse Oximeter] Pulse Rate [Right Radial] Respiratory Rate 21 14 Blood Pressure 98/57 L Blood Pressure [Ri ght Arm] Blood Pressure [Ri ght Upper Arm] Pulse Oximetry 92 92 92 Oxygen Delivery Me thod Nasal Cannula Room Air Oxygen Flow Rate 1 09/03/24 23:45 09/04/24 00:15 09/04/24 00:40 Temperature 97.7 F Pulse Rate 93 Pulse Rate [Pulse Oximeter] 97 Pulse Rate [Right Radial] Respiratory Rate 22 24 Blood Pressure Blood Pressure [Ri ght Arm] 129/87 Blood Pressure [Ri ght Upper Arm] Pulse Oximetry 90 89 87 L Oxygen Delivery Me thod Room Air Room Air Oxygen Flow Rate 09/04/24 00:41 09/04/24 01:06 09/04/24 02:14 Temperature 98.2 F Pulse Rate 91 Pulse Rate [Pulse Oximeter] 88 89 Pulse Rate [Right Radial] Respiratory Rate 24 20 Blood Pressure Blood Pressure [Ri ght Arm] 121/81 114/75 Blood Pressure [Ri ght Upper Arm] Pulse Oximetry 92 92 Oxygen Delivery Me thod Nasal Cannula Nasal Cannula Oxygen Flow Rate 1 1 09/04/24 02:59 09/04/24 03:00 09/04/24 03:10 Temperature Pulse Rate 90 Pulse Rate [Pulse Oximeter] 89 Pulse Rate [Right Radial] Respiratory Rate 20 20 Blood Pressure Blood Pressure [Ri ght Arm] 116/79 Blood Pressure [Ri ght Upper Arm] Pulse Oximetry 91 87 L Oxygen Delivery Me thod Nasal Cannula Nasal Cannula Oxygen Flow Rate 1 1 09/04/24 04:04 09/04/24 05:00 09/04/24 07:00 Temperature 98 F Pulse Rate 113 H Pulse Rate [Pulse Oximeter] 96 95 Pulse Rate [Right Radial] Respiratory Rate 20 20 Blood Pressure Blood Pressure [Ri ght Arm] 127/87 121/77 Blood Pressure [Ri ght Upper Arm] Pulse Oximetry 91 89 Oxygen Delivery Me thod Nasal Cannula Nasal Cannula Oxygen Flow Rate 1.5 1.5 09/04/24 07:00 09/04/24 07:53 Temperature 98.5 F Pulse Rate Pulse Rate [Pulse Oximeter] 112 H 112 H Pulse Rate [Right Radial] Respiratory Rate 22 Blood Pressure Blood Pressure [Ri ght Arm] 130/81 Blood Pressure [Ri ght Upper Arm] Pulse Oximetry 89 Oxygen Delivery Me thod Nasal Cannula Oxygen Flow Rate 2 Labs Labs: Laboratory Results - last 24 hr 09/03/24 09/03/24 09/03/24 00:55 04:50 19:50 WBC 15.19 H RBC 3.62 L Hgb 13.5 Hct 36.8 L MCV 102 H MCH 37 H MCHC 37 H RDW Coeff of Jean 15.8 H Plt Count 249 Neut % (Auto) 80.4 H Lymph % (Auto) 7.2 L [place] % (Auto) 11.1 H Eos % (Auto) 0.2 Baso % (Auto) 0.1 Neut # (Auto) 12.20 H Lymph # (Auto) 1.10 [place] # (Auto) 1.70 H Eos # (Auto) 0.00 Baso # (Auto) 0.00 Abs Immat Gran (auto) 0.20 Imm/Tot Granulo (auto) 1.0 INR 1.45 H VBG pH 7.438 H VBG pCO2 29 L VBG pO2 56.4 H VBG HCO3 19 L Sodium 120 L* 119 L* Potassium 3.6 3.8 Chloride 85 L 82 L Carbon Dioxide 18 L 15 L Anion Gap 17 H 22 H BUN 15 14 Creatinine 1.0 1.1 Estimated Creat Clear 94.29 85.72 Estimated GFR 93 83 Glucose 121 H 137 H Lactate 8.4 H* Calcium 7.4 L 7.8 L Phosphorus 3.7 Magnesium 2.3 Total Bilirubin 12.4 H Direct Bilirubin 10.2 H AST 285 H ALT 71 H Alkaline Phosphatase 496 H Ammonia 70.9 H Total Creatine Kinase 97 Troponin I < 0.01 L C-Reactive Protein 4.2 H Total Protein 7.0 Albumin 3.5 Lipase 2201 H Procalcitonin Urine Color Urine Appearance Urine pH Ur Specific [place] Urine Protein Urine Glucose (UA) Urine Ketones Urine Blood Urine Nitrite Urine Bilirubin Urine Urobilinogen Ur Leukocyte Esterase Urine RBC Urine WBC Ur Squamous Epith Cells Urine Bacteria Fine Granular Casts Urine Opiates Screen Negative Ur Oxycodone Screen Negative Urine Methadone Screen Negative Acetaminophen < 10.0 L Ur Barbiturates Screen Negative U Tricyclic Antidepress Negative Ur Phencyclidine Scrn Negative Ur Amphetamines Screen Negative U Methamphetamines Scrn Negative U Benzodiazepines Scrn Negative Urine Cocaine Screen Negative U Marijuana (THC) Screen POSITIVE A Ur Drug Screen Comment See Note Ethyl Alcohol 0.00 L Lab Acknowledgement 09/03/24 09/03/24 09/04/24 22:32 23:46 02:00 WBC RBC Hgb Hct MCV MCH MCHC RDW Coeff of Jean Plt Count Neut % (Auto) Lymph % (Auto) [place] % (Auto) Eos % (Auto) Baso % (Auto) Neut # (Auto) Lymph # (Auto) [place] # (Auto) Eos # (Auto) Baso # (Auto) Abs Immat Gran (auto) Imm/Tot Granulo (auto) INR VBG pH VBG pCO2 VBG pO2 VBG HCO3 Sodium Potassium Chloride Carbon Dioxide Anion Gap BUN Creatinine Estimated Creat Clear Estimated GFR Glucose Lactate 4.9 H* Calcium Phosphorus Magnesium Total Bilirubin Direct Bilirubin AST ALT Alkaline Phosphatase Ammonia Total Creatine Kinase Troponin I C-Reactive Protein Total Protein Albumin Lipase Procalcitonin Urine Color Red A Urine Appearance Turbid A Urine pH 5.0 Ur Specific [place] 1.010 Urine Protein Trace A Urine Glucose (UA) Negative Urine Ketones Negative Urine Blood Trace-intact A Urine Nitrite Negative Urine Bilirubin 3+ A Urine Urobilinogen 2.0 A Ur Leukocyte Esterase Negative Urine RBC 0-2 Urine WBC 2-5 Ur Squamous Epith Cells Few Urine Bacteria Few A Fine Granular Casts Few A Urine Opiates Screen Ur Oxycodone Screen Urine Methadone Screen Acetaminophen Ur Barbiturates Screen U Tricyclic Antidepress Ur Phencyclidine Scrn Ur Amphetamines Screen U Methamphetamines Scrn U Benzodiazepines Scrn Urine Cocaine Screen U Marijuana (THC) Screen Ur Drug Screen Comment Ethyl Alcohol Lab Acknowledgement Cancelled 09/04/24 09/04/24 05:54 07:52 WBC 16.14 H RBC 3.21 L Hgb 11.9 L Hct 32.8 L MCV 102 H MCH 37 H MCHC 36 RDW Coeff of Jean 16.1 H Plt Count 236 Neut % (Auto) 82.0 H Lymph % (Auto) 6.1 L [place] % (Auto) 10.9 Eos % (Auto) 0.2 Baso % (Auto) 0.1 Neut # (Auto) 13.20 H Lymph # (Auto) 1.00 [place] # (Auto) 1.80 H Eos # (Auto) 0.00 Baso # (Auto) 0.00 Abs Immat Gran (auto) 0.10 Imm/Tot Granulo (auto) 0.7 INR VBG pH VBG pCO2 VBG pO2 VBG HCO3 Sodium 120 L* Potassium 3.7 Chloride 87 L Carbon Dioxide 20 Anion Gap 13 BUN 15 Creatinine 1.0 Estimated Creat Clear 94.29 Estimated GFR 93 Glucose 133 H Lactate 3.4 H Calcium 7.2 L Phosphorus Magnesium Total Bilirubin 11.0 H Direct Bilirubin 9.2 H AST 252 H ALT 70 H Alkaline Phosphatase 414 H Ammonia Total Creatine Kinase 128 Troponin I C-Reactive Protein 4.1 H Total Protein 6.3 Albumin 3.0 L Lipase 2084 H Procalcitonin 0.78 H Urine Color Urine Appearance Urine pH Ur Specific [place] Urine Protein Urine Glucose (UA) Urine Ketones Urine Blood Urine Nitrite Urine Bilirubin Urine Urobilinogen Ur Leukocyte Esterase Urine RBC Urine WBC Ur Squamous Epith Cells Urine Bacteria Fine Granular Casts Urine Opiates Screen Ur Oxycodone Screen Urine Methadone Screen Acetaminophen Ur Barbiturates Screen U Tricyclic Antidepress Ur Phencyclidine Scrn Ur Amphetamines Screen U Methamphetamines Scrn U Benzodiazepines Scrn Urine Cocaine Screen U Marijuana (THC) Screen Ur Drug Screen Comment Ethyl Alcohol Lab Acknowledgement Test Added
[2024-09-04 08:32] LABS: Procalcitonin* 0.73 ng/mL (<0.50)
--- NOTE | 2024-09-04 08:42 | CRLHL7_ITS ---
For Patients: As a result of the Century Cures Act, medical imaging exams and procedure reports are released immediately into your electronic medical record. You may view this report before your referring provider. If you have questions, please contact your health care provider. INDICATION: Hypoxia. Ascites. Liver failure. COMPARISON: None TECHNIQUE: Single view portable examination FINDINGS: TUBES AND LINES: None. HEART AND MEDIASTINUM: The heart size is normal. The mediastinal contour appears normal for patient age. LUNGS AND PLEURAL SPACES: Low lung volumes. However, the lungs appear to be clear. No pleural effusion or pneumothorax. OSSEOUS STRUCTURES: Age-appropriate appearance. No acute focal finding. IMPRESSION: Low lung volumes. No focal consolidation or infiltrate. No visible pleural effusion. Heart size normal. Dictated by Tc Johns MD @ 09/04/2024 9:22:09 AM (Electronically Signed)
[2024-09-04 09:09] LABS: Prothrombin Time 19.1 Seconds
[2024-09-04 09:10] LABS: Partial Thromboplastin Time* 40 Seconds (23-33)
[2024-09-04] MEDS: THIAMINE 250 MG in 0.9 % SODIUM CHLORIDE 100 ml 100 ML 102.5 MG IVPB ×2 (09:31→14:04)
[2024-09-04] MEDS: FOLIC ACID 1 MG TABLET PO (09:31)
[2024-09-04] MEDS: MULTIVITAMIN/MINERALS 1 TABLET 1 TAB PO (09:31)
[2024-09-04] MEDS: FUROSEMIDE 40 MG TABLET PO (09:31)
[2024-09-04] MEDS: LACTULOSE 20 GM/30 ML PO (09:31)
[2024-09-04] MEDS: SODIUM CHLORIDE 0.9 % (FLUSH) 10 ML SYRINGE 5 ML IVF (09:31)
--- NOTE | 2024-09-04 10:09 | REH.OT ---
OT orders for eval and treat received. Per nsg, pt not appropriate at this time d/t medical status. Pt is awaiting transfer to [facility], will re-attempt tomorrow if still here.
--- NOTE | 2024-09-04 11:00 | REH.PT ---
Pt with alcohol cirrhosis and in alcohol withdrawal. Not approriate for PT at this time due to medical condition and awaiting transfer to the [facility].
--- NOTE | 2024-09-04 11:01 | PM.GSCN ---
History of Present Illness Consult details Date Seen: 09/04/24 Consult date: 09/04/24 Narrative: Patient is a 49-year-old male who presented to the emergency department yesterday with weakness. He states that he fell yesterday at home and could not get off the floor. He has a history of alcohol dependence and he states that over the last week and a half his abdomen has becoming more distended. It has been painful and has caused some shortness of breath. He has also had nausea and vomiting but states that he has had nausea vomiting chronically. Denies change in bowel habits or fever. In the ER he was tachycardic with a tense abdomen. He is found have elevated white blood cell count, and markedly elevated bilirubin at 11. CT scan showed ascites and portal hypertension. [facility] Medical History (Updated 09/04/24 @ 13:06 by Lina Strong MD) Portal hypertensive gastropathy ?K76.6 - Portal hypertension (ICD-10) ?K31.89 - Other diseases of stomach and duodenum (ICD-10) Cirrhosis, alcoholic ?K70.30 - Alcoholic cirrhosis of liver without ascites (ICD-10) Alcohol use disorder ?F10.90 - Alcohol use, unspecified, uncomplicated (ICD-10) Social History (Updated 09/04/24 @ 01:07 by Reese Michel MD) Narrative: He lives in [place] with his . His is power of employment law attorney. Code status is full. 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 He drinks alcohol daily but is quite vague about how much. He says if he does not drink he does get quite shaky. He does not smoke. Occasional cannabis use. He does not have a local physician. He gets an antidepressant prescribed by an online physician. What is your current living situation?: I presently have a place to live Problems where you live: no known problems Problems where you live details: N/A In the past 12 months, utilities in danger of being shut off: no In past 12 months, lack of transportation kept you from medical appts, meetings, work, or getting things needed for daily living: no In the past 12 mos, have been you worried that your food would run out before you had money to buy more?: never true In the past 12 mos, the food you bought just didn't last and you didn't have money to buy more?: never true Highest level of school completed/degree received: some college, no degree Smoking Status: Never smoker Do you use any of these nicotine containing products: None Nicotine containing products detail: Hx of social cigarette smoking Denies ever being a smoker - no quit date given Second hand tobacco smoke exposure: No How often do you have a drink containing alcohol: 4 or more times a week Alcohol type: wine and hard liquor Alcohol type details: Drinks Vodka mixed with water Couple drinks per day on weekdays, more on the weekend in a normal glass with fingers demonstrating a 4inch tall glass/cup. unable to define couple drinks How many standard drinks containing alcohol do you have on a typical day: 5 or 6 How often do you have six or more drinks on one occasion: Daily or almost daily AUDIT-C Alcohol total score: 10 Non-prescribed substance use: denies use How often does anyone, including family, friends and others, physically hurt you: never How often does anyone, including family, friends and others, insult or talk down to you: never How often does anyone, including family, friends and others, threaten you with harm: never How often does anyone, including family, friends and others, scream or curse at you: never Meds Home Medications and Allergies Allergies Allergy/AdvReac Type Severity Reaction Status Date / Time No Known Drug Allergies Allergy Verified 09/03/24 22:53 Exam Narrative: Exam Narrative: General appearance: Cooperative, and in no distress Eyes: Scleral icterus noted. Pulmonary: Breathing is nonlabored on nasal cannula. Cardiovascular Heart: Mildly tachycardic but regular Gastrointestinal Abdominal: No scars. Soft nontender reducible umbilical hernia noted. Abdomen is distended and tense. Musculoskeletal: Extremities: Upper: Both upper extremities have normal joint range of motion and intact strength. Lower: Both lower extremities have normal joint range of motion and intact strength. Skin: Normal skin color, texture, and turgor. Const: Vital Signs, click to edit/add: Vital Signs - 24 hr 09/03/24 19:22 09/03/24 19:41 09/03/24 19:45 Temperature 97.4 F L Pulse Rate 93 Pulse Rate [Pulse Oximeter] Pulse Rate [Right Radial] 96 Respiratory Rate 22 Blood Pressure Blood Pressure [Ri ght Arm] Blood Pressure [Ri ght Upper Arm] 118/80 Pulse Oximetry 92 93 90 Oxygen Delivery Me thod Room Air Oxygen Flow Rate 09/03/24 20:24 09/03/24 20:30 09/03/24 21:00 Temperature Pulse Rate 97 92 93 Pulse Rate [Pulse Oximeter] Pulse Rate [Right Radial] Respiratory Rate 20 22 Blood Pressure 118/60 105/66 Blood Pressure [Ri ght Arm] Blood Pressure [Ri ght Upper Arm] Pulse Oximetry 92 92 91 Oxygen Delivery Me thod Room Air Room Air Oxygen Flow Rate 09/03/24 21:01 09/03/24 21:03 09/03/24 23:25 Temperature Pulse Rate 98 93 Pulse Rate [Pulse Oximeter] Pulse Rate [Right Radial] Respiratory Rate Blood Pressure 117/79 Blood Pressure [Ri ght Arm] Blood Pressure [Ri ght Upper Arm] Pulse Oximetry 93 92 89 Oxygen Delivery Me thod Room Air Oxygen Flow Rate 09/03/24 23:29 09/03/24 23:35 09/03/24 23:36 Temperature Pulse Rate 92 93 Pulse Rate [Pulse Oximeter] Pulse Rate [Right Radial] Respiratory Rate 21 14 Blood Pressure 98/57 L Blood Pressure [Ri ght Arm] Blood Pressure [Ri ght Upper Arm] Pulse Oximetry 92 92 92 Oxygen Delivery Me thod Nasal Cannula Room Air Oxygen Flow Rate 1 09/03/24 23:45 09/04/24 00:15 09/04/24 00:40 Temperature 97.7 F Pulse Rate 93 Pulse Rate [Pulse Oximeter] 97 Pulse Rate [Right Radial] Respiratory Rate 22 24 Blood Pressure Blood Pressure [Ri ght Arm] 129/87 Blood Pressure [Ri ght Upper Arm] Pulse Oximetry 90 89 87 L Oxygen Delivery Me thod Room Air Room Air Oxygen Flow Rate 09/04/24 00:41 09/04/24 01:06 09/04/24 02:14 Temperature 98.2 F Pulse Rate 91 Pulse Rate [Pulse Oximeter] 88 89 Pulse Rate [Right Radial] Respiratory Rate 24 20 Blood Pressure Blood Pressure [Ri ght Arm] 121/81 114/75 Blood Pressure [Ri ght Upper Arm] Pulse Oximetry 92 92 Oxygen Delivery Me thod Nasal Cannula Nasal Cannula Oxygen Flow Rate 1 1 09/04/24 02:59 09/04/24 03:00 09/04/24 03:10 Temperature Pulse Rate 90 Pulse Rate [Pulse Oximeter] 89 Pulse Rate [Right Radial] Respiratory Rate 20 20 Blood Pressure Blood Pressure [Ri ght Arm] 116/79 Blood Pressure [Ri ght Upper Arm] Pulse Oximetry 91 87 L Oxygen Delivery Me thod Nasal Cannula Nasal Cannula Oxygen Flow Rate 1 1 09/04/24 04:04 09/04/24 05:00 09/04/24 07:00 Temperature 98 F Pulse Rate 113 H Pulse Rate [Pulse Oximeter] 96 95 Pulse Rate [Right Radial] Respiratory Rate 20 20 Blood Pressure Blood Pressure [Ri ght Arm] 127/87 121/77 Blood Pressure [Ri ght Upper Arm] Pulse Oximetry 91 89 Oxygen Delivery Me thod Nasal Cannula Nasal Cannula Oxygen Flow Rate 1.5 1.5 09/04/24 07:00 09/04/24 07:53 09/04/24 09:00 Temperature 98.5 F 99.9 F H Pulse Rate Pulse Rate [Pulse Oximeter] 112 H 112 H 113 H Pulse Rate [Right Radial] Respiratory Rate 22 22 Blood Pressure Blood Pressure [Ri ght Arm] 130/81 113/93 H Blood Pressure [Ri ght Upper Arm] Pulse Oximetry 89 90 Oxygen Delivery Me thod Nasal Cannula Nasal Cannula Oxygen Flow Rate 2 2 09/04/24 10:55 Temperature 99.9 F H Pulse Rate Pulse Rate [Pulse Oximeter] 113 H Pulse Rate [Right Radial] Respiratory Rate 22 Blood Pressure Blood Pressure [Ri ght Arm] 113/93 H Blood Pressure [Ri ght Upper Arm] Pulse Oximetry 90 Oxygen Delivery Me thod Nasal Cannula Oxygen Flow Rate 2 Results Labs Labs: Abnormal lab results 09/03/24 09/03/24 09/03/24 Range/Units 00:55 04:50 19:50 WBC 15.19 H (4.50-11.00) K/uL RBC 3.62 L (4.30-5.90) m/uL Hgb (13.5-17.5) gm/dL Hct 36.8 L (37.0-53.0) % MCV 102 H (80-100) fL MCH 37 H (26-34) pg MCHC 37 H (32-36) gm/dL RDW Coeff of Jean 15.8 H (11.5-15.5) % Neut % (Auto) 80.4 H (42.0-72.0) % Lymph % (Auto) 7.2 L (20-44) % Sully % (Auto) 11.1 H (0.0-11.0) % Neut # (Auto) 12.20 H (1.7-7.0) K/uL Sully # (Auto) 1.70 H (0.00-0.90) K/UL INR 1.45 H (0.91-1.10) APTT (23-33) Seconds VBG pH 7.438 H (7.32-7.43) VBG pCO2 29 L (40-50) mmHG VBG pO2 56.4 H (25-47) mmHG VBG HCO3 19 L (21-28) mmol/L Sodium 120 L* 119 L* (135-149) mmol/L Chloride 85 L 82 L (96-114) mmol/L Carbon Dioxide 18 L 15 L (20-32) mmol/L Anion Gap 17 H 22 H (7-15) mEq/L Glucose 121 H 137 H (60-115) mg/dL Lactate 8.4 H* (0.5-1.9) mmol/L Calcium 7.4 L 7.8 L (8.4-10.6) mg/dL Total Bilirubin 12.4 H (0.1-1.5) mg/dL Direct Bilirubin 10.2 H (0.0-0.5) mg/dL AST 285 H (12-35) U/L ALT 71 H (4-50) U/L Alkaline Phosphatase 496 H (40-150) U/L Ammonia 70.9 H (13.1-30.0) umol/L Troponin I < 0.01 L (0.01-0.04) ng/mL C-Reactive Protein 4.2 H (0.5-1.0) mg/dL Albumin (3.3-5.0) g/dL Lipase 2201 H (23-300) U/L Procalcitonin 0.73 H (<0.50) ng/mL Urine Color (Yellow) Urine Appearance (Clear) Urine Protein (Negative) Urine Blood (Negative) Urine Bilirubin (Negative) Urine Urobilinogen (0.2-1.0) Urine Bacteria (None) Fine Granular Casts (None) Acetaminophen < 10.0 L (10.0-30.0) ug/mL U Marijuana (THC) Screen POSITIVE A (Negative) Ethyl Alcohol 0.00 L (0.01-0.03) % 09/03/24 09/03/24 09/04/24 Range/Units 22:32 23:46 05:54 WBC 16.14 H (4.50-11.00) K/uL RBC 3.21 L (4.30-5.90) m/uL Hgb 11.9 L (13.5-17.5) gm/dL Hct 32.8 L (37.0-53.0) % MCV 102 H (80-100) fL MCH 37 H (26-34) pg MCHC (32-36) gm/dL RDW Coeff of Jean 16.1 H (11.5-15.5) % Neut % (Auto) 82.0 H (42.0-72.0) % Lymph % (Auto) 6.1 L (20-44) % Sully % (Auto) (0.0-11.0) % Neut # (Auto) 13.20 H (1.7-7.0) K/uL Sully # (Auto) 1.80 H (0.00-0.90) K/UL INR 1.50 H (0.91-1.10) APTT 40 H (23-33) Seconds VBG pH (7.32-7.43) VBG pCO2 (40-50) mmHG VBG pO2 (25-47) mmHG VBG HCO3 (21-28) mmol/L Sodium 120 L* (135-149) mmol/L Chloride 87 L (96-114) mmol/L Carbon Dioxide (20-32) mmol/L Anion Gap (7-15) mEq/L Glucose 133 H (60-115) mg/dL Lactate 4.9 H* 3.4 H (0.5-1.9) mmol/L Calcium 7.2 L (8.4-10.6) mg/dL Total Bilirubin 11.0 H (0.1-1.5) mg/dL Direct Bilirubin 9.2 H (0.0-0.5) mg/dL AST 252 H (12-35) U/L ALT 70 H (4-50) U/L Alkaline Phosphatase 414 H (40-150) U/L Ammonia (13.1-30.0) umol/L Troponin I (0.01-0.04) ng/mL C-Reactive Protein 4.1 H (0.5-1.0) mg/dL Albumin 3.0 L (3.3-5.0) g/dL Lipase 2084 H (23-300) U/L Procalcitonin 0.78 H (<0.50) ng/mL Urine Color Red A (Yellow) Urine Appearance Turbid A (Clear) Urine Protein Trace A (Negative) Urine Blood Trace-intact A (Negative) Urine Bilirubin 3+ A (Negative) Urine Urobilinogen 2.0 A (0.2-1.0) Urine Bacteria Few A (None) Fine Granular Casts Few A (None) Acetaminophen (10.0-30.0) ug/mL U Marijuana (THC) Screen (Negative) Ethyl Alcohol (0.01-0.03) % Diabetes panel 09/03/24 09/03/24 09/04/24 Range/Units 00:55 19:50 05:54 Sodium 120 L* 119 L* 120 L* (135-149) mmol/L Potassium 3.6 3.8 3.7 (3.6-5.1) mmol/L Chloride 85 L 82 L 87 L (96-114) mmol/L Carbon Dioxide 18 L 15 L 20 (20-32) mmol/L BUN 15 14 15 (5-24) mg/dL Creatinine 1.0 1.1 1.0 (0.5-1.5) mg/dL Glucose 121 H 137 H 133 H (60-115) mg/dL Calcium 7.4 L 7.8 L 7.2 L (8.4-10.6) mg/dL AST 285 H 252 H (12-35) U/L ALT 71 H 70 H (4-50) U/L Alkaline Phosphatase 496 H 414 H (40-150) U/L Total Protein 7.0 6.3 (6.0-8.3) g/dL Albumin 3.5 3.0 L (3.3-5.0) g/dL Calcium panel 09/03/24 09/03/24 09/04/24 Range/Units 00:55 19:50 05:54 Calcium 7.4 L 7.8 L 7.2 L (8.4-10.6) mg/dL Phosphorus 3.7 (2.5-4.5) mg/dL Albumin 3.5 3.0 L (3.3-5.0) g/dL Pituitary panel 09/03/24 09/03/24 09/04/24 Range/Units 00:55 19:50 05:54 Sodium 120 L* 119 L* 120 L* (135-149) mmol/L Potassium 3.6 3.8 3.7 (3.6-5.1) mmol/L Chloride 85 L 82 L 87 L (96-114) mmol/L Carbon Dioxide 18 L 15 L 20 (20-32) mmol/L BUN 15 14 15 (5-24) mg/dL Creatinine 1.0 1.1 1.0 (0.5-1.5) mg/dL Glucose 121 H 137 H 133 H (60-115) mg/dL Calcium 7.4 L 7.8 L 7.2 L (8.4-10.6) mg/dL Adrenal panel 09/03/24 09/03/24 09/04/24 Range/Units 00:55 19:50 05:54 Sodium 120 L* 119 L* 120 L* (135-149) mmol/L Potassium 3.6 3.8 3.7 (3.6-5.1) mmol/L Chloride 85 L 82 L 87 L (96-114) mmol/L Carbon Dioxide 18 L 15 L 20 (20-32) mmol/L BUN 15 14 15 (5-24) mg/dL Creatinine 1.0 1.1 1.0 (0.5-1.5) mg/dL Glucose 121 H 137 H 133 H (60-115) mg/dL Calcium 7.4 L 7.8 L 7.2 L (8.4-10.6) mg/dL Total Bilirubin 12.4 H 11.0 H (0.1-1.5) mg/dL AST 285 H 252 H (12-35) U/L ALT 71 H 70 H (4-50) U/L Alkaline Phosphatase 496 H 414 H (40-150) U/L Total Protein 7.0 6.3 (6.0-8.3) g/dL Albumin 3.5 3.0 L (3.3-5.0) g/dL All other labs normal. Imaging Abdomen CT scan report/results: report reviewed and image reviewed Additional studies: CT abdomen pelvis: IMPRESSION: Hepatomegaly with underlying steatosis. Sequela of portal venous hypertension, including moderate volume ascites. Mild gastric/duodenal and proximal colonic wall thickening, likely portal gastropathy/colopathy. Otherwise, no acute intra-abdominal/pelvic abnormality. Please note that all CT scans at this facility use dose modulation, iterative reconstruction, and/or weight-based dosing when appropriate to reduce radiation dose to as low as reasonably achievable. Dictated by Km David MD @ 09/03/2024 8:25:38 PM General Surgery Procedures Paracentesis Time out performed: Yes Imaging guidance used: Yes Indication: Ascites Procedure: diagnostic paracentesis Location: RLQ Local anesthetic used: lidocaine 1% Amount of anesthesia used (ml): 10 Bedside ultrasound used: yes, Ascites confirmed and location marked Preparation: sterile prep and drape Amount of fluid obtained (ml): 4,500 Fluid: clear and sent to lab for analysis Post procedure exam: awake, alert Patient tolerated procedure: well Complications: none Progress Note:A&P Assessment and plan (1) Acute alcoholic hepatitis: Status: Acute (2) Portal hypertensive gastropathy: Status: Acute (3) Abdominal ascites: Status: Acute (4) Acute liver failure: Status: Acute Plan The patient is a 49-year-old male with alcoholic cirrhosis, acute hepatic failure and ascites. Diagnostic and therapeutic paracentesis was performed today at bedside after obtaining informed consent from the patient. The patient tolerated the procedure well. 4500 mL of straw-colored fluid were removed. I did discuss with the patient and his family that he may need additional paracentesis going forward, this will depend on his symptoms and the rate of fluid reaccumulation.
[2024-09-04] MEDS: ALBUMIN HUMAN 25% 25 GM/100 ML VIAL IVPB (11:45)
[2024-09-04] MEDS: prednisoLONE 15 MG/5ML SOLN 40 MG PO (12:08)
[2024-09-04 12:33] LABS: Lactate Dehydrogenase* 391 U/L (120-246)
[2024-09-04 13:01] LABS: BF Color Xanthochromic
[2024-09-04 13:02] LABS: Albumin Body Fluid* < 1.0 gm/dL; Amylase Body Fluid* 46 U/L; BF Clarity* Clear; Body Fluid Total Protein* < 2.0 gm/dL; Glucose Body Fluid* 128 mg/dL; LDH Body Fluid* 82 U/L
[2024-09-04 13:03] LABS: BF Total Volume* 18
[2024-09-04 13:47] LABS: Mononuclear WBC Body Fluid* 72 %; Polynuclear WBC Body Fluid* 29 %; RBC, Body Fluid* 2000 Cells/uL; WBC, Body Fluid* 77 Cells/uL
--- NOTE | 2024-09-04 14:39 | PM.DST ---
Transfer Discharge Sum: Prov Provider Date Seen: 09/04/24 Date of admission: 09/03/24 23:42 Primary care physician: Not a Local Provider Attending physician on admission: Lina Strong Consults: 09/03/24 23:44 Consult to Occupational Therapy [CONS] Routine Comment: Reason(s) for OT Consult:: Evaluate and Treat Any Restrictions?:: No Restrictions Consult to Physical Therapy [CONS] Routine Comment: Reason(s) for PT Consult:: Evaluate and Treat Any Restrictions?:: No Restrictions Consult to [facility] [CONS] Routine Comment: Reason for Consult:: Discharge Planning Needs 09/04/24 00:08 Consult to Physician [CONS] Routine Comment: Consulting Provider: Racquel Hong Has provider been notified: No Discharging clinician: Lina Strong Anticipated date of transfer: 09/04/24 Receiving physician/facility: [facility]: Diagnosis Discharge Diagnosis (1) Acute alcoholic hepatitis: Status: Acute Problem details: -last drink (vodka) 5 pm on 09/03 -INR 1.5, PT 19 -hyperbilirubinemia -transaminitis -hyponatremia -elevated lactate -elevated ammonia level (not encephalopathic) -nml platelets, normal creatinine -pH on 7.438 (2) Portal hypertensive gastropathy: Status: Acute Problem details: stigmata of alcoholic liver disease (3) Alcohol use disorder: Status: Acute Problem details: First medical evaluation/presentation. drinks vodka water - not clear on how much he consumes. withdrew once but did not present. has not worked since 2020. +depression. THC on drug screen. (4) Abdominal ascites: Status: Acute Problem details: -initially on rocephin; culture of peritoneal fluid pending at [place] -4.5L drawn off 09/04 at [place], given albumin -SAAG gradient 2 (c/w portal hypertension) -protein 6.3, low protein -PMN 29 -culture and gram stain pending -cytology for HCC pending -LDH ratio is 4.7 (5) Pancreatitis: Status: Acute Problem details: lipase >2000; no pain Transfer Discharge Sum: Med Medications Active and Home Medications: Active Medications Enoxaparin Sodium (Enoxaparin 40 Mg/0.4 Ml Inj) 40 mg SUBCUT HS ROCHELLE Flumazenil (Flumazenil 0.1 Mg/Ml Inj) 0.2 mg IVP Q1M PRN PRN Reason: Respiratory Depression Folic Acid (Folic Acid 1 Mg Tablet) 1 mg PO DAILY [facility] Last Admin: 09/04/24 09:31 Dose: 1 mg Furosemide (Furosemide 40 Mg Tablet) 40 mg PO DAILY@0800 [facility] Last Admin: 09/04/24 09:31 Dose: 40 mg Thiamine HCl 250 mg/ Sodium (Chloride) 102.5 mls @ 102.5 mls/hr IVPB TID [facility] Stop: 09/06/24 21:01 Last Admin: 09/04/24 14:04 Dose: 102.5 mls/hr Dextrose/Lactated Ringer's (5 % Dextrose In Lac Ringer's) 1,000 mls @ 125 mls/hr IV .Q8H [facility] Last Admin: 09/04/24 08:52 Dose: 125 mls/hr Ceftriaxone Sodium 1 gm/ (Sodium Chloride) 100 mls @ 200 mls/hr IVPB Q24H [facility] Phenobarbital 260 mg/ Sodium (Chloride) 104 mls @ 208 mls/hr IVPB ONCE ONE Stop: 09/04/24 14:33 Lactulose (Lactulose 20 Gm/30 Ml) 20 gm PO BID [facility] Last Admin: 09/04/24 09:31 Dose: 20 gm Lorazepam (Lorazepam 2 Mg/Ml Inj) 1 - 4 mg IVP Q30M PRN; Protocol Last Admin: 09/04/24 10:59 Dose: 2 mg Lorazepam (Lorazepam 1 Mg Tablet) 1 - 4 mg PO Q30M PRN; Protocol Midodrine (Midodrine Hcl 5 Mg Tablet) 5 mg PO BID [facility] Last Admin: 09/04/24 09:30 Dose: 5 mg Multivitamins/Minerals (Multivitamin/Minerals 1 Tablet) 1 tab PO DAILY [facility] Last Admin: 09/04/24 09:31 Dose: 1 tab Prednisone (Prednisone 20 Mg Tablet) 40 mg PO DAILYWM [facility] Sodium Chloride (Sodium Chloride 0.9 % (Flush) 10 Ml Syringe) 5 ml IVF BID [facility] Last Admin: 09/04/24 09:31 Dose: 5 ml Transfer Discharge Sum: Hosp Hospital Course Hospital course: HOSPITALIST TRANSFER SUMMARY ATTENDING PHYSICIAN: Lina Strong MD REASON FOR TRANSFER Severe alcoholic hepatitis Significant withdrawal risk In needed gastroenterology consultation BRIEF HOSPITAL COURSE: 49-year-old white male admitted last night, 09/03/2024, to CCU status at [facility]. Patient presented with weakness, abdominal pain and distension, yellow eyes. He was diagnosed with acute, 1st lifetime presentation, of abdominal ascites and acute alcohol hepatitis. Mild leukocytosis, afebrile. We initiated intravenous antibiotics, ceftriaxone 1 g, out of caution for spontaneous bacterial peritonitis. His last drink was vodka water at 5:00 p.m. on 09/03/2024. He is mildly hypoxic requiring 2 L nasal cannula oxygen. He has a coagulopathy with a INR of 1.5 and PT of 19. He has severe hyperbilirubinemia and transaminitis and elevated lipase all consistent with the stigmata of acute alcoholic hepatitis. His abdominal exam was concerning for tense ascites. The day after admission we were able to take off 4.5 L of straw-colored fluid from his peritoneum. Initial labs reveal transudative ascites consistent with portal hypertension and acute hepatitis. PMNs in the ascitic fluid were less than 50. Calculating his Maddrey score, 42 and his meld 3 point of score of 23 classified him as severe alcoholic hepatitis. By the afternoon the day after admission he started demonstrating tremor and mild anxiety. His blood pressure and pulse were increasing. His pain was well managed. We had discussed with our most available tertiary care center, [place], about accepting care. He has been on a wait list for almost 15 hours. I have significant concerns regarding the expected complications of alcohol withdrawal and his severe alcoholic hepatitis. I did initiate glucocorticoid therapy with prednisone 40 mg p.o. on 09/04. SERVICES NOT AVAILABLE HERE THAT THIS PATIENT NEEDS: ICU capability, gastroenterology ACCEPTING PHYSICIAN/SERVICE/LOCATION: Dr. Minaya, [facility] MEDICATIONS AT TIME OF TRANSFER: D5 LR, ceftriaxone, phenobarbital, lactulose, thiamine, mododrine, ativan, furosemide. DRIPS/LINES: Pelletier 2 PIVs NC oxygen VITAL SIGN, MEDICATION, LAB/MICRO, IMAGING SUMMARY (full details available in account tabs or by records request) 131/84. Pulse 114. Resp is 20. Temp 99.6?. Sats 90% on nasal cannula 2 L REVIEW OF SYSTEMS Unchanged. PHYSICAL EXAM: CONSTITUTIONAL: Scleral icterus. Looks acutely ill. Coherent. Not agitated. VITAL SIGNS: see record. Exam unchanged from earlier with notable exceptions: DISPOSITION: Transfer to tertiary care Time spent on discharge >30 minutes. This includes speaking with accepting physician; family/patient and coordinating meds/drips for transfer Time Spent with Patient Time attestation: Total time spent providing and/or coordinating transfer services: Exam Const: Vital Signs, click to edit/add: Vital Signs - 24 hr 09/03/24 19:22 09/03/24 19:41 09/03/24 19:45 Temperature 97.4 F L Pulse Rate 93 Pulse Rate [Pulse Oximeter] Pulse Rate [Right Radial] 96 Respiratory Rate 22 Blood Pressure Blood Pressure [Ri ght Arm] Blood Pressure [Ri ght Upper Arm] 118/80 Pulse Oximetry 92 93 90 Oxygen Delivery Me thod Room Air Oxygen Flow Rate 09/03/24 20:24 09/03/24 20:30 09/03/24 21:00 Temperature Pulse Rate 97 92 93 Pulse Rate [Pulse Oximeter] Pulse Rate [Right Radial] Respiratory Rate 20 22 Blood Pressure 118/60 105/66 Blood Pressure [Ri ght Arm] Blood Pressure [Ri ght Upper Arm] Pulse Oximetry 92 92 91 Oxygen Delivery Me thod Room Air Room Air Oxygen Flow Rate 09/03/24 21:01 09/03/24 21:03 09/03/24 23:25 Temperature Pulse Rate 98 93 Pulse Rate [Pulse Oximeter] Pulse Rate [Right Radial] Respiratory Rate Blood Pressure 117/79 Blood Pressure [Ri ght Arm] Blood Pressure [Ri ght Upper Arm] Pulse Oximetry 93 92 89 Oxygen Delivery Me thod Room Air Oxygen Flow Rate 09/03/24 23:29 09/03/24 23:35 09/03/24 23:36 Temperature Pulse Rate 92 93 Pulse Rate [Pulse Oximeter] Pulse Rate [Right Radial] Respiratory Rate 21 14 Blood Pressure 98/57 L Blood Pressure [Ri ght Arm] Blood Pressure [Ri ght Upper Arm] Pulse Oximetry 92 92 92 Oxygen Delivery Me thod Nasal Cannula Room Air Oxygen Flow Rate 1 09/03/24 23:45 09/04/24 00:15 09/04/24 00:40 Temperature 97.7 F Pulse Rate 93 Pulse Rate [Pulse Oximeter] 97 Pulse Rate [Right Radial] Respiratory Rate 22 24 Blood Pressure Blood Pressure [Ri ght Arm] 129/87 Blood Pressure [Ri ght Upper Arm] Pulse Oximetry 90 89 87 L Oxygen Delivery Me thod Room Air Room Air Oxygen Flow Rate 09/04/24 00:41 09/04/24 01:06 09/04/24 02:14 Temperature 98.2 F Pulse Rate 91 Pulse Rate [Pulse Oximeter] 88 89 Pulse Rate [Right Radial] Respiratory Rate 24 20 Blood Pressure Blood Pressure [Ri ght Arm] 121/81 114/75 Blood Pressure [Ri ght Upper Arm] Pulse Oximetry 92 92 Oxygen Delivery Me thod Nasal Cannula Nasal Cannula Oxygen Flow Rate 1 1 09/04/24 02:59 09/04/24 03:00 09/04/24 03:10 Temperature Pulse Rate 90 Pulse Rate [Pulse Oximeter] 89 Pulse Rate [Right Radial] Respiratory Rate 20 20 Blood Pressure Blood Pressure [Ri ght Arm] 116/79 Blood Pressure [Ri ght Upper Arm] Pulse Oximetry 91 87 L Oxygen Delivery Me thod Nasal Cannula Nasal Cannula Oxygen Flow Rate 1 1 09/04/24 04:04 09/04/24 05:00 09/04/24 07:00 Temperature 98 F Pulse Rate 113 H Pulse Rate [Pulse Oximeter] 96 95 Pulse Rate [Right Radial] Respiratory Rate 20 20 Blood Pressure Blood Pressure [Ri ght Arm] 127/87 121/77 Blood Pressure [Ri ght Upper Arm] Pulse Oximetry 91 89 Oxygen Delivery Me thod Nasal Cannula Nasal Cannula Oxygen Flow Rate 1.5 1.5 09/04/24 07:00 09/04/24 07:53 09/04/24 09:00 Temperature 98.5 F 99.9 F H Pulse Rate Pulse Rate [Pulse Oximeter] 112 H 112 H 113 H Pulse Rate [Right Radial] Respiratory Rate 22 22 Blood Pressure Blood Pressure [Ri ght Arm] 130/81 113/93 H Blood Pressure [Ri ght Upper Arm] Pulse Oximetry 89 90 Oxygen Delivery Me thod Nasal Cannula Nasal Cannula Oxygen Flow Rate 2 2 09/04/24 10:55 09/04/24 11:00 09/04/24 11:00 Temperature 99.9 F H 99.9 F H Pulse Rate 124 H Pulse Rate [Pulse Oximeter] 113 H 116 H Pulse Rate [Right Radial] Respiratory Rate 22 22 Blood Pressure Blood Pressure [Ri ght Arm] 113/93 H 131/88 Blood Pressure [Ri ght Upper Arm] Pulse Oximetry 90 90 Oxygen Delivery Me thod Nasal Cannula Nasal Cannula Oxygen Flow Rate 2 2 09/04/24 11:57 09/04/24 12:56 09/04/24 14:00 Temperature 99.4 F 99.6 F 99.6 F Pulse Rate Pulse Rate [Pulse Oximeter] 118 H 118 H 114 H Pulse Rate [Right Radial] Respiratory Rate 22 20 20 Blood Pressure Blood Pressure [Ri ght Arm] 126/81 144/83 H 131/64 Blood Pressure [Ri ght Upper Arm] Pulse Oximetry 92 91 90 Oxygen Delivery Me thod Nasal Cannula Nasal Cannula Nasal Cannula Oxygen Flow Rate 2 2 2 Discharge Plan Discharge Disposition: [facility] Date of Admission: 09/03/24 23:42 Attending Provider on Discharge: Lina Strong Primary Care Provider: Provider,Not a Local Discharge Orders: Transfer of Care to Other Hospital (ORDER); Ordered 09/04/24 Ordered By: Lina Strong Oxygen: Yes Oxygen Delivery Method: Nasal Cannula Oxygen Flow Rate: 2L Urinary Catheter: Yes Services not available here: GI; ICU
--- NOTE | 2024-09-04 17:28 | PC.NURSE ---
Addendum entered by Heather Hurtado RN 09/04/24 18:20: Patient discharged @ 1805, room checked with family, belongings returned to family, no medications in med bin. Original Note: Discharge: Patient pleasant and cooperative. Up with 1-2 assist pivot to BSC. Vitals stable, HR, BP and RR elevated, MD made aware. temp 99.8 managed with decreasing room temp and removing layers of blankets. Pelletier placed this morning due to retention. IV in bilat hands patent. Paracentesis done with 4500cc out, samples sent to lab. When asked about withdrawal symptoms patient states mild nausea, tremors and perspiration on palms noted at times; denies headache or visual/auditory disturbances. Refused meals, compliant with fluid restriction. Nurse to nurse report given to Radu SMITH @ [id number], awaiting EMS to transport patient to [facility].
== END 2024-09-04 18:05 | disposition short-term general hospital (02) | DRG 432 ==
LOC: ED 21:09 → MEDSURG 09-04 00:01
PROVIDERS: Family Medicine; Admitting Provider Family Medicine; Emergency Provider Emergency Medicine; Visit Provider Family Medicine
DX: K70.11 Alcoholic hepatitis with ascites (principal); K85.20 Alcohol induced acute pancreatitis without necrosis or infection; K76.6 Portal hypertension; F10.239 Alcohol dependence with withdrawal, unspecified; E87.1 Hypo-osmolality and hyponatremia; K70.31 Alcoholic cirrhosis of liver with ascites; K70.40 Alcoholic hepatic failure without coma; K76.82 Hepatic encephalopathy; F10.229 Alcohol dependence with intoxication, unspecified; K31.89 Other diseases of stomach and duodenum; Y90.0 Blood alcohol level of less than 20 mg/100 ml; R94.31 Abnormal electrocardiogram [ECG] [EKG]; I45.19 Other right bundle-branch block; R40.2142 Coma scale, eyes open, spontaneous, at arrival to emergency department; R40.2252 Coma scale, best verbal response, oriented, at arrival to emergency department; R40.2362 Coma scale, best motor response, obeys commands, at arrival to emergency department; R09.02 Hypoxemia
CPT/HCPCS: 36415; 49083; 51701; 51798; 70450; 71045; 74177; 76705; 80048; 80053; 80076; 80143; 80306; 81001; 81003; 82042; 82077; 82140; 82150; 82550; 82803; 82945; 83605; 83615; 83690; 83735; 84100; 84145; 84157; 84484; 85025; 85610; 85730; 86140; 87040; 87070; 87086; 87205; 88108; 88112; 88305; 89051; 93005; 99285; 99291; A9153; A9270; J0696; J1940; J2060; J2560; J3411; J7030; J7510; P9047; Q9967

== ENCOUNTER 2024-09-04 17:54 | Outpatient (CLI) | payer OTHER, SELFPAY | END 2024-09-04 17:55 | disposition home or self-care (01) | LOC: AMB 09-08 11:08 | PROVIDERS: Visit Provider Emergency Medicine | DX: K70.31 Alcoholic cirrhosis of liver with ascites (principal) | CPT/HCPCS: A0425; A0434 ==